=== PATIENT | female | born 2000 | race Hispanic/Latino ===

== ENCOUNTER 2022-06-22 18:30 | Emergency (ER) | payer BC, OTHER | END 2022-06-22 20:33 | disposition home or self-care (01) | LOC: CSHERS 18:30 | DX: N89.8 Other specified noninflammatory disorders of vagina (principal) | CPT/HCPCS: 99282 ==

== ENCOUNTER 2024-01-15 13:47 | Outpatient (CLI) | payer BC ==
[2024-01-15 14:36] LABS: Hematocrit 39.4 % (34.9-44.5)
[2024-01-15 15:19] LABS: BHCG - Serum Negative (NEGATIVE); Pregs Control Background? CLEAR/WHITE (CLR/WHITE); Pregs Control Bar Appear? YES (CONTROL BAR)
== END 2024-01-15 13:48 | disposition home or self-care (01) ==
LOC: CSHLAB 13:47
PROVIDERS: ATTEND Specialist
DX: Z01.812 Encounter for preprocedural laboratory examination (principal); J35.01 Chronic tonsillitis
CPT/HCPCS: 84703; 85014

== ENCOUNTER 2024-01-18 06:24 | Day surgery (SDC) | payer BC ==
[2024-01-15 14:09] VITALS: BMI 41.2
[2024-01-18] MEDS ORDERED: SUGAMMADEX SODIUM 200 MG/2 ML VIAL ONE ×2 (08:00→08:57)
[2024-01-18] MEDS ORDERED: PROPOFOL 40 ML ONE (08:00)
[2024-01-18] MEDS ORDERED: Ondansetron PF 4 MG/2 ML Vial ONE (08:00)
[2024-01-18] MEDS ORDERED: Lidocaine 1% PF 5 ML VIAL ONE (08:00)
[2024-01-18] MEDS ORDERED: Dexamethasone 4 mg/ml Vial ONE (08:00)
[2024-01-18] MEDS ORDERED: Rocuronium Bromide 10 MG/ML (10ML VIAL) ONE ×2 (08:00→08:57)
[2024-01-18] MEDS ORDERED: fentaNYL 50 mcg/mL 1 mL Vial ONE ×2 (08:01→09:24)
[2024-01-18] MEDS ORDERED: Dexamethasone 20 MG/5 ML VIAL ONE (08:01)
[2024-01-18] MEDS ORDERED: KETAMINE 100 MG/ML (5ML VIAL) ONE (08:01)
[2024-01-18] MEDS ORDERED: Ferric Subsulfate 8 ML TOPICAL SOLN ONE (09:50)
[2024-01-18] MEDS ORDERED: Hydrocodone-Acetamin 15 ML UDCUP ONE (10:43)
== END 2024-01-18 11:20 | disposition home or self-care (01) ==
LOC: CSHSDC 06:24
PROVIDERS: ATTEND Specialist
PROC: 0CBPXZZ Excision of Tonsils, External Approach (ICD-10-PCS; principal; 2024-01-18)
DX: J35.01 Chronic tonsillitis (principal); G47.33 Obstructive sleep apnea (adult) (pediatric); J35.8 Other chronic diseases of tonsils and adenoids; J34.3 Hypertrophy of nasal turbinates; H61.23 Impacted cerumen, bilateral; J30.9 Allergic rhinitis, unspecified; E66.9 Obesity, unspecified; Z68.41 Body mass index [BMI] 40.0-44.9, adult; Z79.899 Other long term (current) drug therapy
CPT/HCPCS: 88304; J1100; J2405; J2704; J3010